=== PATIENT | male | born 1945 | race Caucasian/White ===

== ENCOUNTER → 2016-12-08 | Outpatient (CLI) | payer MEDICARE, BC ==
[2015-02-20 07:02] VITALS: BP 142/74
[~2016-12-08] MED LIST: ASPI-482 PO; CLOP75TA57 PO; LABE200T2 PO; LIPITOR80 MG PO; LOSA1TAB16 PO; METO25TA4 PO; OLME20TA19 PO; OMEG-33 PO; OMEG300C PO; PHEN100C PO; PHEN100C4 PO; ZOLPIDEM 5 MG TABLET. PO ONE; [UNRECOGNIZED DRUG - CODE] PO
--- NOTE | 2016-12-09 14:51 | SLEEP ---
DATE OF STUDY: 12/08/2016 SLEEP STUDY REFERRED BY: Celeste Rubalcava. HISTORY OF PRESENT ILLNESS: The patient is 71 years old who weighs 170 pounds with a BMI of 27. The patient's Richmond score was 10. Sleep study was performed at [facility]. During the night study, the patient spent 452 minutes in bed and slept for 413 minutes with a sleep efficiency of 91%. Sleep latency was 7 minutes with a REM latency of 280 minutes. Overall, sleep architecture showed normal stage I sleep, increased stage II sleep, normal slow wave and slightly reduced REM sleep. During the initial diagnostic portion of the study, the patient slept for 210 minutes. During this time, there were 73 obstructive apneas, 175 mixed apneas, 35 hypopneas and no central apneas. The patient's AHI during the diagnostic portion was 81 per hour. Supine AHI 74 per hour. REM sleep was not seen during the diagnostic portion. Nocturnal oximetry study revealed a mean oxygen saturation of 90% with the lowest of 81%, 33% of the time oxygen saturation remained between 80% and 89%. EKG monitoring revealed normal sinus rhythm, average heart rate was 60 beats per minute. No sustained arrhythmias were observed. PLMS were seen at the index of 16 per hour, but only 1 per hour caused EEG arousals. The patient met the criteria for CPAP initiation. It was started at 5 cm water and titrated up to 9 cm of water. At the final pressure, the patient slept for 166 minutes. Supine sleep was seen throughout and multiple REM periods were observed. AHI was reduced to 0 per hour and oxygen saturation remained above 90%. IMPRESSION: 1. Severe sleep apnea-hypopnea syndrome with an apnea-hypopnea index of 81 per hour. 2. Nocturnal hypoxia secondary to obstructive sleep apnea, but resolved with CPAP. 3. Mild periodic limb movement during sleep without any significant EEG arousals. This does not need to be treated. RECOMMENDATIONS: 1. CPAP at 9 cm water completely eliminated patient's sleep apnea and should be used on a nightly basis. 2. Follow up in 4-6 weeks to assess compliance with CPAP and to document clinical improvement. 3. Avoid BALANCE WEIGHER depressants. 4. Cautioned regarding driving until symptoms of sleep apnea resolve with the use of CPAP. THEA U. MAHONEY, MD DR: DANI/hannah JOB#: [id number] / [id number] NISHA
== END | disposition home or self-care (01) ==
LOC: SLPLAB 18:35
PROVIDERS: ATTEND Nurse Practitioner Family
DX: G47.33 Obstructive sleep apnea (adult) (pediatric) (principal); Z79.899 Other long term (current) drug therapy
CPT/HCPCS: 95810

== ENCOUNTER → 2017-05-23 | Outpatient (CLI) | payer MEDICARE, BC ==
[2015-02-20 07:02] VITALS: BP 142/74
[~2017-05-23] MED LIST changes: -LOSA1TAB16 PO; +LOSA1TAB19 PO; -ZOLPIDEM 5 MG TABLET. PO ONE
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
== END | disposition home or self-care (01) ==
LOC: KCIC 14:45
PROVIDERS: ATTEND Nurse Practitioner Family
DX: M25.522 Pain in left elbow (principal)
CPT/HCPCS: 73080

== ENCOUNTER → 2018-03-31 | Outpatient (CLI) | payer MEDICARE, BC ==
[2015-02-20 07:02] VITALS: BP 142/74
[~2018-03-31] MED LIST changes: -LABE200T2 PO; +LABE200T4 PO; +OLME20TA17 PO; -OLME20TA19 PO; +REGADENOSON 0.4 MG/5 ML DISP.SYRIN. IV ONE
--- NOTE | 2018-03-31 11:02 | RAD ---
MR#: [id number] Date of Study: 03/31/2018 Ordering Physician: CHIQUI BLUM, Referring Physician: VALENCIA HANKINS Tech: RT Karan Richardson) (N) APPROVED REPORT Test Type: Pharmacological Stress Nurse/Tech: Tripp CHICAS Test Indications: CAD Cardiac History: CAD, 1 stent 5 years ago Medications: ASA 81 mg, See EMR Medical History: Seziures, See EMR Resting ECG: SB with ST elevation in leads II, III, AVF Resting Heart Rate: 45 bpm Resting Blood Pressure: 128/60mmHg Pretest Chest Pain: No chest pain Nurse/Tech Notes Lungs CTA, Heart tones regular. Consent: The procedure was explained to the patient in lay terms. Informed consent was witnessed. Curly eout was entered into [employer]. History and Stress Test performed by RT Karan Richardson) (N) Pharm. Details Pharmacologic stress testing was performed using 0.4mg per 5ml of regadenoson given intravenously ove r 7-10 seconds. Stress Symptoms No chest pain or symptoms. POST EXERCISE Reason for Termination: Infusion complete Max HR: 76 bpm Max Blood Pressure: 137/48mmHg Chest Pain: No. Arrhythmia: No. ST Change: No. No changes from resting ECG INTERPRETATION Stress EKG Conclusion: Baseline EKG showed sinus rhythm. No ischemic changes at peak stress. No arr hythmias. Imaging Protocol IMAGE PROTOCOL: Rest Tc-99m/stress Tc-99m 1 day Rest: Stress: Viability: Radiopharm.Tc99m [id number] Sestamibi Dose11.5mCi 34.5mCi Duration 13min. 13min. Img Date 03/31/2018 03/31/2018 Inj-Img Wosp14vtn. 60min. Rest Admin Site:IV - Right HandAdministrator:RT Karan Richardson)(N) Stress Admin Site: IV - Right HandAdministrator: RT Karan Richardson)(N) STRESS DATA End Diast. Vol.102.0mlLVEDV index BSA54.0ml End Syst. Vol.39.0mlLVESV index BSA20.0ml Myocardial Stmi457.0gEject. Qqidmfcd46.0% Stress Scores Regional WT1.00Summed WT16.00 Regional WM0.00Summed WM2.00 Study quality was good. Left Ventricular size was Normal at Rest and Stress. Lung uptake was . Left Ventricular ejection fraction is 62%. The rest and stress images show normal perfusion, normal contraction and thickening. LV Perf. Quant 17 Seg. SSS3.00 17 Seg. SRS2.00 17 Seg. SDS2.00 Stress Defect Extent (% LAD)9.40Rest Defect Extent (% LAD)6.30Rev. Defect Extent (% LAD)0.60 Stress Defect Extent (% LCX) 26.30Rest Defect Extent (% LCX)31.30Rev. Defect Extent (% LCX)5.00 Stress Defect Extent (% RCA)0.00Rest Defect Extent (% RCA)0.00Rev. Defect Extent (% RCA)0.00 Stress Defect Extent (% BILL)8.00Rest Defect Extent (% BILL)9.30Rev. Defect Extent (% BILL)1.10 Conclusion 1. Regadenoson cardioisotope stress test did not show any evidence of ischemia or infarct. 2. Normal left ventricular systolic function with ejection fraction calculated at 62%. 3. Low risk for cardiac events. Signed by : Mello Jones, Electronically Approved : 03/31/2018 11:01:33
== END | disposition home or self-care (01) ==
LOC: NM 07:28
PROVIDERS: ATTEND Internal Medicine Cardiovascular Disease
DX: I25.10 Atherosclerotic heart disease of native coronary artery without angina pectoris (principal); I10 Essential (primary) hypertension; E78.5 Hyperlipidemia, unspecified; Z86.69 Personal history of other diseases of the nervous system and sense organs; Z82.49 Family history of ischemic heart disease and other diseases of the circulatory system
CPT/HCPCS: 78452; 93017; 96374; 96375; 96376; A9500; J2785